=== PATIENT | female | born 1945 | race Caucasian/White ===

== ENCOUNTER → 2017-12-22 09:29 | Outpatient (CLI) | payer MEDICARE, OTHER, SELFPAY ==
[2017-12-22 11:59] LABS: Absolute Lymphocyte Count 1.63 X10^3/ul (0.83-4.51); Absolute Neutrophil Count 3.4 X10^3/uL (2.0-7.7); Basophil# 0.04 X10^3/uL; Basophil% 0.7 % (0-1); Eosinophil# 0.25 X10^3/uL; Eosinophils% 4.3 % (0-5); Hematocrit 40.3 % (37-47); Hemoglobin 13.7 g/dl (12.0-15.0); Lymphocyte # 1.63 X10^3/ul (4.0); Lymphocyte % 28.3 % (19-41); Mean Corpuscular Hgb 29.7 pg (27.0-32.0); Mean Corpuscular Volume 87.4 fL (81-99); Mean Platelet Vol. 12.1 fl (6.2-12.0); Monocyte# 0.47 X10^3/uL; Monocyte% 8.2 % (0-10); Neutrophil # 3.35 X10^3/uL (2.7-7.7); Neutrophil % 58.3 % (47-70); Platelet Count 210 K/mm3 (150-450); RBC Distribution Width CV 13.6 % (11.6-14.6); RBC Distribution Width SD 43.5 fl (35.1-43.9); Red Blood Count 4.61 M/mm3 (4.2-5.4); White Blood Count 5.8 K/mm3 (4.4-11.0)
[2017-12-22 12:00] LABS: POSITIVE COUNT NO; POSITIVE DIFFERENTIAL NO; POSITIVE MORPHOLOGY NO
[2017-12-22 12:06] LABS: ALB/GLOB Ratio 0.8 RATIO (0.9-2.4); AST(SGOT) 13 U/L (15-37); Alanine Aminotransfer ALT/SGPT 26 U/L (13-56); Albumin, Serum 3.6 g/dL (3.2-5.0); Alkaline Phosphatase 74 U/L (45-117); Anion Gap 10 (5-15); BUN 20 mg/dL (7-18); BUN/Creat Ratio 24.6 RATIO (10-20); Calcium,Total 8.8 mg/dL (8.5-10.1); Chloride 106 mmol/L (98-107); Cholesterol 179 mg/dL (200); Creatinine, Serum 0.81 mg/dL (0.55-1.02); EST Glomerular Filtration Rate 73 mL/min (>60); Est Glom Filt Rate - Afr Amer 89 mL/min (>60); Globulin 4.6 g/dL (2.2-4.2); Glucose 103 mg/dL (74-106); High Density Lipoprotein 41 mg/dL; Potassium 4.1 mmol/L (3.5-5.1); Protein, Total 8.2 g/dL (6.4-8.2); Sodium Level 141 mmol/L (136-145); Triglycerides 147 mg/dL; Very Low Density Lipoprotein 29 mg/dL (5-40)
== END ==
PROVIDERS: Family Provider Internal Medicine; PCP Internal Medicine; Visit Provider Internal Medicine
DX: I10 Essential (primary) hypertension (principal); E78.5 Hyperlipidemia, unspecified; Z87.898 Personal history of other specified conditions
CPT/HCPCS: 36415; 80053; 80061; 85025

== ENCOUNTER 2017-12-30 03:25 | Emergency (ER) | payer MEDICARE, OTHER, SELFPAY ==
[2017-12-30 03:29] VITALS: BP 168/116; PULSE 99; RESP 14; TEMP 36.6; O2SAT 100; BMI 28.5
--- NOTE | 2017-12-30 03:38 | EKG12_ITS ---
Test Reason : PALPS Blood Pressure : / mmHG Vent. Rate : 099 BPM Atrial Rate : 080 BPM P-R Int : 000 ms QRS Dur : 096 ms QT Int : 364 ms P-R-T Axes : 000 042 -14 degrees QTc Int : 467 ms Atrial fibrillation Nonspecific ST abnormality Abnormal ECG Confirmed by MEG CROUCH, TENZIN ([id number]), photograph editor STUART BAJWA ([id number]) on 01/01/2018 3:08:45 PM Referred By: JERRY Confirmed By:TENZIN WEAVER MD
--- NOTE | 2017-12-30 03:38 | RAD_ITS ---
STUDY: X-RAY CHEST REASON FOR EXAM: Female, 72 years old. Chest pain TECHNIQUE: One view COMPARISON: None. FINDINGS: The lungs are clear and expanded. There is no demonstrated pleural abnormality. Normal size heart. Normal mediastinum and leroy. Normal visualized pulmonary arteries. Normal visualized aortic arch and descending thoracic aorta. Normal visualized thoracic spine. Normal visualized ribs, clavicles, and shoulders. There is no demonstrated abnormality of the visualized soft tissue structures of the upper abdomen. RAD/Chest 1 View (Portable) IMPRESSION: Normal x-ray examination of the chest. No acute findings in the lungs Electronically Signed: Americo Khan MD at 4:01 EDT Tel , Service support ,
[2017-12-30 03:46] LABS: Absolute Lymphocyte Count 3.81 X10^3/ul (0.83-4.51); Absolute Neutrophil Count 3.8 X10^3/uL (2.0-7.7); Basophil# 0.04 X10^3/uL; Basophil% 0.4 % (0-1); Eosinophil# 0.54 X10^3/uL; Hematocrit 43.2 % (37-47); Hemoglobin 14.5 g/dl (12.0-15.0); Lymphocyte # 3.81 X10^3/ul (4.0); Lymphocyte % 42.4 % (19-41); Mean Corp Hgb Conc 33.6 g/gl (32-36); Mean Corpuscular Hgb 28.9 pg (27.0-32.0); Mean Corpuscular Volume 86.2 fL (81-99); Mean Platelet Vol. 11.4 fl (6.2-12.0); Monocyte# 0.83 X10^3/uL; Monocyte% 9.2 % (0-10); Neutrophil # 3.75 X10^3/uL (2.7-7.7); Neutrophil % 41.9 % (47-70); POSITIVE COUNT NO; POSITIVE DIFFERENTIAL NO; POSITIVE MORPHOLOGY NO; Platelet Count 265 K/mm3 (150-450); RBC Distribution Width CV 13.4 % (11.6-14.6); RBC Distribution Width SD 42.6 fl (35.1-43.9); Red Blood Count 5.01 M/mm3 (4.2-5.4)
--- NOTE | 2017-12-30 03:46 | ED.DCSUM_ITS ---
- ER Visit Summary Date of Service: 12/30/17 Chief Complaint: Palpitations History of Present Illness: The patient is a 72 F sudden palpitations awakening at 2 AM. States felt hot flash symptoms then nervous feeling in her chest.. No lightheaded symptoms. No chest pains. States that self-limiting symptoms in the past. No history of cardiac dysrhythmias. Patient states she takes 2 blood pressure medications. No stroke history. No history of heart failure. Takes baby aspirin at night. No report analyst. Physical Examination: General: Alert and oriented ?3, no acute distress HEENT: Normocephalic, atraumatic. Moist mucosa membranes Neck: supple, nontender. Cardiovascular: Regular rate and irregular rhythm, no murmurs Respiratory: Normal breath sounds, symmetric, no distress Abdomen: Soft, nontender, nondistended Extremities: Nontender, no edema, pulses intact ?4 Neuro: no focal neurological deficits. Test Results: EKG: Atrial fibrillation rate of 99, no ST or T wave changes. White count 9, hemoglobin 14.5. Potassium 4.5. Creatinine 0.89. Magnesium 2.2. TSH 2.67. Troponin negative. Chest x-ray negative. Emergency Department Course and Treatment: Patient rate controlled new onset atrial fibrillation on EKG. Check records and her medication she is on atenolol 50 mg daily. Blood pressure stable. Cardiac workup labs electrolytes are normal. Reevaluation heart rate remains rate controlled on the monitor from 70s-90s. Discussed with patient she is been having intermittent symptoms for years. However did be transient for seconds. I suspect she has been in and out of atrial fibrillation with her medication as a rate control. Chads 2 score is a 1. Recommendation currently would continue baby aspirin and her beta-vic. Patient given Dr. Hull for follow-up along with her PCP. Signs and symptoms discussed for return otherwise outpatient follow-up. Treatment Plan: [] Disposition: Discharge Impression: 1. New onset atrial fibrillation rate controlled This note was generated with [employer] dictation software. It may contain incorrect words, spelling, and punctuation that were not noted in review of the chart prior to signing ED Disposition - Plan for ED Patient: Disposition: Home or Assisted Living Chief Complaint: Palpitations Diagnosis: Atrial fibrillation with normal ventricular rate Instructions: ED Afib Referrals: Kristen Tinajero MD [Primary Care Provider] - 3-5 Days Kam Hull MD [STAFF PHYSICIAN] - 3-5 Days Additional Instructions: New onset atrial fibrillation on EKG. Continue your atenolol 50 mg daily. Continue baby aspirin. Follow-up as an outpatient.
[2017-12-30 04:09] LABS: Anion Gap 10 (5-15); BUN 21 mg/dL (7-18); BUN/Creat Ratio 23.7 RATIO (10-20); Chloride 106 mmol/L (98-107); Creatinine, Serum 0.89 mg/dL (0.55-1.02); EST Glomerular Filtration Rate 67 mL/min (>60); Est Glom Filt Rate - Afr Amer 81 mL/min (>60); Estimated Creatinine Clearance 41.04 ml/min; Glucose 124 mg/dL (74-106); Magnesium 2.2 mg/dL (1.6-2.6); Potassium 4.5 mmol/L (3.5-5.1); Sodium Level 140 mmol/L (136-145); Thyroid Stim Hormone (TSH) 2.63 uIU/mL (0.358-3.74)
[2017-12-30 04:12] VITALS: O2SAT 98
[2017-12-30] MEDS: Aspirin 81 MG TAB.CHEW 324 MG PO (04:12)
[2017-12-30 04:40] VITALS: BP 134/78; PULSE 92; RESP 18; O2SAT 97
== END 2017-12-30 04:56 | disposition home or self-care (01) ==
PROVIDERS: Emergency Provider Emergency Medicine; Family Provider Internal Medicine; PCP Internal Medicine
DX: I48.91 Unspecified atrial fibrillation (principal); I10 Essential (primary) hypertension; J30.2 Other seasonal allergic rhinitis; Z79.82 Long term (current) use of aspirin; Z79.899 Other long term (current) drug therapy
CPT/HCPCS: 71045; 80048; 83735; 84443; 84484; 85025; 93005; 99285; A4216

== ENCOUNTER → 2018-02-15 06:44 | Outpatient (CLI) | payer MEDICARE, OTHER, SELFPAY ==
--- NOTE | 2018-02-15 06:52 | ECHOCS_ITS ---
Reason For Study: Afib/Flutter Procedure This was a 2D Doppler, Color Flow transthoracic echocardiogram. The study was technically difficult. Contrast injection was performed. Exam performed in department. Left Ventricle Normal LV size. Left ventricular systolic function is normal. The estimated ejection fraction is 70 %. Transmitral diastolic flow velocities suggest moderate (stage 2) diastolic dysfunction (pseudonormal pattern). No regional wall motion abnormalities noted. Right Ventricle Normal RV size. Normal systolic function. Atria Normal left atrium. Normal right atrium. No doppler evidence for ASD. Mitral Valve There is no mitral annular calcification. Normal mitral valve. Trivial mitral valve insufficiency. Tricuspid Valve Normal tricuspid valve. Trivial tricuspid valve insufficiency. Unable to estimate RV systolic pressure/pulmonary artery pressure due to technically difficult study. Aortic Valve The aortic valve is not well visualized. Mild focal aortic valve calcification. Pulmonic Valve The pulmonic valve is not well visualized. Trivial pulmonic valve insufficiency. Great Vessels The aortic root is not well visualized. Pericardium/Pleural No pericardial effusion. Medication 22 gauge I.V. with prn adaptor inserted into right arm. Diluted definity 1ml given slow IV push to enhance endocardial definition. MMode/2D Measurements & Calculations LVIDd: 3.5 cm IVSd: 1.1 cm LAV(MOD-bp): 41.1 ml LVIDs: 1.8 cm LVPWd: 1.2 cm FS: 46.8 % LAV(MOD-bp) Indexed: 25.0 ml/m2 LAV(MOD-sp2): 35.7 ml LAV(MOD-sp4): 42.2 ml LA A4 area: 16.7 cm2 RA A4 area: 10.3 cm2 Time Measurements MV dec time: 0.19 sec Doppler Measurements & Calculations MV E max tate: 84.7 cm/sec Lat Peak E' Tate: 11.9 cm/sec MV V2 max: 104.0 cm/sec MV A max tate: 82.0 cm/sec E/E' lat: 7.1 MV max P.3 mmHg MV E/A: 1.0 MV V2 mean: 60.5 cm/sec MV mean P.8 mmHg MV V2 VTI: 24.6 cm MV P1/2t max tate: 104.0 cm/sec Ao V2 max: 141.6 cm/sec LV V1 max: 124.5 cm/sec MV P1/2t: 56.5 msec Ao max P.0 mmHg LV V1 max P.2 mmHg Ao V2 mean: 98.0 cm/sec LV V1 mean P.0 mmHg MV dec slope: 539.6 cm/sec2 Ao mean P.3 mmHg LV V1 mean: 80.3 cm/sec MVA(P1/2t): 3.9 cm2 Ao V2 VTI: 29.6 cm LV V1 VTI: 25.6 cm PA V2 max: 126.2 cm/sec Interpretation Summary The study was technically difficult. Contrast injection was performed. Left ventricular systolic function is normal. The estimated ejection fraction is 70 %. Trivial mitral valve insufficiency. Trivial tricuspid valve insufficiency. Mild focal aortic valve calcification. Trivial pulmonic valve insufficiency. Unable to estimate RV systolic pressure/pulmonary artery pressure due to technically difficult study. Transmitral diastolic flow velocities suggest diastolic dysfunction (pseudonormal pattern). Ordering Physician: Kam Hull Referring Physician: Kristen Tinajero Performed By: Tez Brandt RCS
--- NOTE | 2018-02-15 09:51 | STRESSREP ---
Stress Test Report Date: 02/15/2018 Procedure: Exercise tolerance test/imaging study Indications: Atrial fibrillation Consent: Per the patient Procedure: The patient exercised on a Alan protocol for 8 minutes completing Stage II and 2 minutes of Stage III achieving a peak heart rate of 153 bpm (103 % predicted maximal heart rate) with a peak blood pressure 184/70 mmHg and a peak MET capacity of 9 METs. The baseline ECG demonstrated normal sinus rhythm. The peak exercise ECG demonstrated no obvious ECG changes. There were occasional atrial couplets/triplets during recovery; occasional PVCs during exercise and recovery; occasional ventricular couplets during exercise. The functional capacity was considered good. There was no complaint of chest discomfort during exercise or recovery. The examination was discontinued secondary to dyspnea and leg discomfort. Impression: 1. Technically adequate (percent predicted maximal heart rate greater than 85%) exercise tolerance test 2. Peak exercise ECG with no obvious ECG changes 3. There were occasional atrial couplets/triplets during recovery; occasional PVCs during exercise and recovery; occasional ventricular couplets during exercise 4. Nuclear images pending Myocardial perfusion imaging study: Technique: The patient was injected with 11.3 mCi of technetium 99m Cardiolite and subsequently rest SPECT Cardiolite nuclear imaging was obtained in the horizontal long, vertical long, and short axis views. The patient exercised on a Alan protocol for 8 minutes completing Stage II and 2 minutes of Stage III achieving a peak heart rate of 153 bpm (103 % predicted maximal heart rate) with a peak blood pressure 184/70 mmHg and a peak MET capacity of 9 METs. The patient was injected with 33.3 mCi of technetium 99m Cardiolite and subsequently stress SPECT Cardiolite nuclear imaging was obtained in the horizontal long, vertical long, and short axis views. A gated Cardiolite study at peak stress was obtained. Interpretation: Rest and stress SPECT Cardiolite nuclear imaging status post realignment, normalization, and attenuation correction, demonstrates the appearance of relative uniform tracer uptake and myocardial perfusion appearing within normal limits. There is end systolic thickening and brightening. The gated Cardiolite study demonstrates myocardial thickening and inward wall motion. The reported LVEF is 91 %. Impression: 1. Rest and stress SPECT Cardiolite nuclear imaging demonstrate relative uniform tracer uptake and myocardial perfusion appearing within normal limits. 2. The gated Cardiolite study reports an LVEF of 91 %. This note was generated with [employer] software. It may contain incorrect words, spelling, and punctuation that were not noted in checking the note before signing.
--- NOTE | 2018-02-15 09:54 | STRESSREP_ITS ---
Stress Test Report Date: 02/15/2018 Procedure: Exercise tolerance test/imaging study Indications: Atrial fibrillation Consent: Per the patient Procedure: The patient exercised on a Alan protocol for 8 minutes completing Stage II and 2 minutes of Stage III achieving a peak heart rate of 153 bpm (103 % predicted maximal heart rate) with a peak blood pressure 184/70 mmHg and a peak MET capacity of 9 METs. The baseline ECG demonstrated normal sinus rhythm. The peak exercise ECG demonstrated no obvious ECG changes. There were occasional atrial couplets/triplets during recovery; occasional PVCs during exercise and recovery; occasional ventricular couplets during exercise. The functional capacity was considered good. There was no complaint of chest discomfort during exercise or recovery. The examination was discontinued secondary to dyspnea and leg discomfort. Impression: 1. Technically adequate (percent predicted maximal heart rate greater than 85%) exercise tolerance test 2. Peak exercise ECG with no obvious ECG changes 3. There were occasional atrial couplets/triplets during recovery; occasional PVCs during exercise and recovery; occasional ventricular couplets during exercise 4. Nuclear images pending Myocardial perfusion imaging study: Technique: The patient was injected with 11.3 mCi of technetium 99m Cardiolite and subsequently rest SPECT Cardiolite nuclear imaging was obtained in the horizontal long, vertical long, and short axis views. The patient exercised on a Alan protocol for 8 minutes completing Stage II and 2 minutes of Stage III achieving a peak heart rate of 153 bpm (103 % predicted maximal heart rate) with a peak blood pressure 184/70 mmHg and a peak MET capacity of 9 METs. The patient was injected with 33.3 mCi of technetium 99m Cardiolite and subsequently stress SPECT Cardiolite nuclear imaging was obtained in the horizontal long, vertical long, and short axis views. A gated Cardiolite study at peak stress was obtained. Interpretation: Rest and stress SPECT Cardiolite nuclear imaging status post realignment, normalization, and attenuation correction, demonstrates the appearance of re lative uniform tracer uptake and myocardial perfusion appearing within normal limits. There is end systolic thickening and brightening. The gated Cardiolite study demonstrates myocardial thickening and inward wall motion. The reported LVEF is 91 %. Impression: 1. Rest and stress SPECT Cardiolite nuclear imaging demonstrate relative uniform tracer uptake and myocardial perfusion appearing within normal limits. 2. The gated Cardiolite study reports an LVEF of 91 %. This note was generated with [employer] software. It may contain incorrect words, spelling, and punctuation that were not noted in checking the note before signing.
== END ==
PROVIDERS: Family Provider Internal Medicine; PCP Internal Medicine; Referring Provider Internal Medicine Cardiovascular Disease; Visit Provider Internal Medicine Cardiovascular Disease
DX: I48.0 Paroxysmal atrial fibrillation (principal); E78.5 Hyperlipidemia, unspecified; I10 Essential (primary) hypertension
CPT/HCPCS: 78452; 93017; 93306; A9500; Q9957; A4216; C8929

== ENCOUNTER → 2018-02-19 09:52 | Outpatient (CLI) | payer MEDICARE, OTHER, SELFPAY ==
[2018-01-25 10:18] VITALS: BMI 28.3
[2018-02-19 12:56] LABS: Anion Gap 8 (5-15); BUN 22 mg/dL (7-18); BUN/Creat Ratio 28.2 RATIO (10-20); Calcium,Total 8.8 mg/dL (8.5-10.1); Chloride 107 mmol/L (98-107); Creatinine, Serum 0.78 mg/dL (0.55-1.02); EST Glomerular Filtration Rate 77 mL/min (>60); Est Glom Filt Rate - Afr Amer 93 mL/min (>60); Glucose 96 mg/dL (74-106); Potassium 4.6 mmol/L (3.5-5.1); Sodium Level 140 mmol/L (136-145)
== END ==
PROVIDERS: Family Provider Internal Medicine; PCP Internal Medicine; Visit Provider Internal Medicine
DX: I10 Essential (primary) hypertension (principal)
CPT/HCPCS: 36415; 80048

== ENCOUNTER → 2018-06-04 09:33 | Outpatient (CLI) | payer MEDICARE, OTHER, SELFPAY ==
[2018-05-01 11:19] VITALS: BMI 28.5
[2018-06-04 12:56] LABS: Anion Gap 9 (5-15); BUN 24 mg/dL (7-18); BUN/Creat Ratio 28.7 RATIO (10-20); Calcium,Total 8.7 mg/dL (8.5-10.1); Chloride 110 mmol/L (98-107); Creatinine, Serum 0.84 mg/dL (0.55-1.02); EST Glomerular Filtration Rate 71 mL/min (>60); Est Glom Filt Rate - Afr Amer 86 mL/min (>60); Glucose 99 mg/dL (74-106); Potassium 4.3 mmol/L (3.5-5.1); Sodium Level 143 mmol/L (136-145)
== END ==
PROVIDERS: Family Provider Internal Medicine; PCP Internal Medicine; Referring Provider Internal Medicine; Visit Provider Internal Medicine
DX: I10 Essential (primary) hypertension (principal)
CPT/HCPCS: 36415; 80048

== ENCOUNTER → 2018-10-29 | Outpatient (CLI) | payer MEDICARE, OTHER, SELFPAY ==
[2018-10-29 09:49] VITALS: BMI 28.5
[2018-10-29 12:22] LABS: Absolute Lymphocyte Count 1.85 X10^3/uL (0.83-4.51); Absolute Neutrophil Count 2.9 X10^3/uL (2.0-7.7); Basophil# 0.05 X10^3/uL; Basophil% 0.9 % (0-1); Eosinophil# 0.36 X10^3/uL; Eosinophils% 6.3 % (0-5); Hematocrit 40.1 % (37-47); Hemoglobin 13.5 g/dL (12.0-15.0); Lymphocyte # 1.85 X10^3/ul (4.0); Lymphocyte % 32.4 % (19-41); Mean Corp Hgb Conc 33.7 g/dL (32-36); Mean Corpuscular Hgb 30.3 pg (27.0-32.0); Mean Corpuscular Volume 90.1 fL (81-99); Mean Platelet Vol. 11.9 fl (6.2-12.0); Monocyte# 0.51 X10^3/uL; Monocyte% 8.9 % (0-10); NRBC Flagged by Analyzer 0 % (0-5); Neutrophil # 2.93 X10^3/uL (2.7-7.7); Neutrophil % 51.3 % (47-70); Platelet Count 201 K/mm3 (150-450); RBC Distribution Width CV 12.9 % (11.6-14.6); RBC Distribution Width SD 42.4 fl (35.1-43.9); Red Blood Count 4.45 M/mm3 (4.2-5.4); White Blood Count 5.7 K/mm3 (4.4-11.0)
[2018-10-29 12:25] LABS: Anion Gap 5 (5-15); BUN 22 mg/dL (7-18); BUN/Creat Ratio 26.1 RATIO (10-20); Chloride 107 mmol/L (98-107); Creatinine, Serum 0.84 mg/dL (0.55-1.02); EST Glomerular Filtration Rate 70 mL/min (>60); Est Glom Filt Rate - Afr Amer 85 mL/min (>60); Glucose 105 mg/dL (74-106); Potassium 4.2 mmol/L (3.5-5.1); Sodium Level 137 mmol/L (136-145)
== END | disposition home or self-care (01) ==
LOC: BIMLAB 10:27
PROVIDERS: Family Provider Internal Medicine; PCP Internal Medicine; Visit Provider Internal Medicine
DX: I48.0 Paroxysmal atrial fibrillation (principal); I10 Essential (primary) hypertension
CPT/HCPCS: 36415; 80048; 85025

== ENCOUNTER → 2019-01-10 | Outpatient (CLI) | payer MEDICARE, OTHER, SELFPAY ==
[2018-12-18 09:46] VITALS: BMI 28.9
[2019-01-10 12:43] LABS: AST(SGOT) 16 U/L (15-37); Alanine Aminotransfer ALT/SGPT 29 U/L (13-56); Albumin, Serum 3.6 g/dL (3.2-5.0); Alkaline Phosphatase 66 U/L (45-117); Bilirubin, Direct 0.11 mg/dL (0.00-0.30); Cholesterol 192 mg/dL (200); Globulin 4.2 g/dL (2.2-4.2); High Density Lipoprotein 43 mg/dL; Protein, Total 7.8 g/dL (6.4-8.2); Triglycerides 206 mg/dL; Very Low Density Lipoprotein 41 mg/dL (5-40)
== END | disposition home or self-care (01) ==
LOC: BIMLAB 09:12
PROVIDERS: Family Provider Internal Medicine; PCP Internal Medicine; Visit Provider Nurse Practitioner Family
DX: E78.5 Hyperlipidemia, unspecified (principal)
CPT/HCPCS: 36415; 80061; 80076

== ENCOUNTER → 2019-06-17 10:27 | Outpatient (CLI) | payer MEDICARE, OTHER, SELFPAY ==
[2019-06-17 09:58] VITALS: BMI 28.9
[2019-06-17 13:18] LABS: Anion Gap 6 (5-15); BUN 17 mg/dL (7-18); BUN/Creat Ratio 18.8 RATIO (10-20); Calcium,Total 9.1 mg/dL (8.5-10.1); Chloride 110 mmol/L (98-107); EST Glomerular Filtration Rate 65 mL/min (>60); Est Glom Filt Rate - Afr Amer 79 mL/min (>60); Glucose 148 mg/dL (74-106); Sodium Level 142 mmol/L (136-145)
== END ==
PROVIDERS: PCP Internal Medicine; Referring Provider Internal Medicine; Visit Provider Internal Medicine
DX: I10 Essential (primary) hypertension (principal)
CPT/HCPCS: 36415; 80048

== ENCOUNTER → 2019-08-21 16:29 | Outpatient (CLI) | payer MEDICARE, OTHER, SELFPAY ==
[2019-08-21 13:51] VITALS: BMI 28.9
[2019-08-21 17:11] LABS: Absolute Lymphocyte Count 1.87 X10^3/uL (0.83-4.51); Absolute Neutrophil Count 3.6 X10^3/uL (2.0-7.7); Basophil# 0.05 X10^3/uL; Basophil% 0.8 % (0-1); Eosinophil# 0.27 X10^3/uL; Eosinophils% 4.3 % (0-5); Hematocrit 40.9 % (37-47); Hemoglobin 13.3 g/dL (12.0-15.0); Lymphocyte # 1.87 X10^3/ul (4.0); Lymphocyte % 29.5 % (19-41); Mean Corp Hgb Conc 32.5 g/dL (32-36); Mean Corpuscular Volume 89.3 fL (81-99); Mean Platelet Vol. 12.2 fl (6.2-12.0); Monocyte# 0.56 X10^3/uL; Monocyte% 8.8 % (0-10); NRBC Flagged by Analyzer 0 % (0-5); Neutrophil # 3.56 X10^3/uL (2.7-7.7); Neutrophil % 56.3 % (47-70); Platelet Count 238 K/mm3 (150-450); RBC Distribution Width CV 12.9 % (11.6-14.6); RBC Distribution Width SD 42.3 fl (35.1-43.9); Red Blood Count 4.58 M/mm3 (4.2-5.4); White Blood Count 6.3 K/mm3 (4.4-11.0)
[2019-08-21 17:22] LABS: ALB/GLOB Ratio 0.8 RATIO (0.9-2.4); AST(SGOT) 15 U/L (15-37); Alanine Aminotransfer ALT/SGPT 27 U/L (13-56); Albumin, Serum 3.9 g/dL (3.2-5.0); Alkaline Phosphatase 72 U/L (45-117); Anion Gap 6 (5-15); BUN 19 mg/dL (7-18); BUN/Creat Ratio 20.8 RATIO (10-20); Calcium,Total 9.4 mg/dL (8.5-10.1); Chloride 106 mmol/L (98-107); Creatinine, Serum 0.91 mg/dL (0.55-1.02); EST Glomerular Filtration Rate 64 mL/min (>60); Est Glom Filt Rate - Afr Amer 77 mL/min (>60); Globulin 4.8 g/dL (2.2-4.2); Glucose 87 mg/dL (74-106); Potassium 3.8 mmol/L (3.5-5.1); Protein, Total 8.7 g/dL (6.4-8.2); Sodium Level 139 mmol/L (136-145)
== END ==
PROVIDERS: PCP Internal Medicine; Referring Provider Internal Medicine; Visit Provider Internal Medicine
DX: I10 Essential (primary) hypertension (principal)
CPT/HCPCS: 80053; 85025

== ENCOUNTER → 2019-09-25 | Outpatient (CLI) | payer MEDICARE, OTHER, SELFPAY ==
[2019-08-21 13:51] VITALS: BMI 28.9
[2019-09-25 13:02] LABS: Anion Gap 5 (5-15); BUN 22 mg/dL (7-18); BUN/Creat Ratio 24.2 RATIO (10-20); Chloride 107 mmol/L (98-107); Creatinine, Serum 0.91 mg/dL (0.55-1.02); EST Glomerular Filtration Rate 64 mL/min (>60); Est Glom Filt Rate - Afr Amer 78 mL/min (>60); Glucose 109 mg/dL (74-106); Potassium 4.3 mmol/L (3.5-5.1); Sodium Level 139 mmol/L (136-145)
[2019-09-25 13:16] LABS: AST(SGOT) 16 U/L (15-37); Alanine Aminotransfer ALT/SGPT 27 U/L (13-56); Albumin, Serum 3.6 g/dL (3.2-5.0); Alkaline Phosphatase 59 U/L (45-117); Bilirubin, Direct 0.15 mg/dL (0.00-0.30); Cholesterol 170 mg/dL (200); Globulin 4.5 g/dL (2.2-4.2); High Density Lipoprotein 41 mg/dL; Protein, Total 8.1 g/dL (6.4-8.2); Triglycerides 123 mg/dL; Very Low Density Lipoprotein 25 mg/dL (5-40)
== END | disposition home or self-care (01) ==
LOC: BIMLAB 08:17
PROVIDERS: Nurse Practitioner Family; PCP Internal Medicine; Referring Provider Internal Medicine; Visit Provider Internal Medicine
DX: I10 Essential (primary) hypertension (principal); E78.00 Pure hypercholesterolemia, unspecified; E78.5 Hyperlipidemia, unspecified
CPT/HCPCS: 36415; 80048; 80061; 80076

== ENCOUNTER → 2019-12-04 11:19 | Outpatient (CLI) | payer MEDICARE, OTHER, SELFPAY ==
[2019-12-04 10:54] VITALS: BMI 28.9
[2019-12-04 11:22] LABS: Bacteria 0 SEEN /hpf (None Seen); Mucous, Urine 0 SEEN /hpf (<or=2+); Red Blood Cells-Urine 0 SEEN /hpf (0-5); White Blood Cells 0 SEEN /hpf (0-5)
[2019-12-04 12:23] LABS: Color, Urine Yellow (Yellow); Glucose, Dipstick Normal (Normal); Ketone-Dipstick Negative (Negative); Leukocyte Esterase-Dipstick 100 /ul (Negative); Nitrite-Dipstick Negative (Negative); Occult Blood-Urine Negative /ul (Negative); Protein-Dipstick Negative (Negative); Urine Bilirubin Dipstick Negative (Negative); Urine Clarity Clear (Clear); Urine Urobilinogen Normal (Normal)
[2019-12-04 12:27] LABS: Squamous Epithelial Cells - UA 0-5 SEEN /hpf (5-10)
== END ==
PROVIDERS: PCP Internal Medicine; Referring Provider Nurse Practitioner Family; Visit Provider Nurse Practitioner Family
DX: R35.0 Frequency of micturition (principal); N39.0 Urinary tract infection, site not specified
CPT/HCPCS: 81001; 87086; 87088

== ENCOUNTER → 2020-02-11 11:00 | Outpatient (CLI) | payer MEDICARE, OTHER, SELFPAY ==
[2020-01-13 09:53] VITALS: BMI 28.9
== END ==
PROVIDERS: PCP Internal Medicine; Referring Provider Physician Assistant Medical; Visit Provider Physician Assistant Medical
DX: I48.91 Unspecified atrial fibrillation (principal); I48.0 Paroxysmal atrial fibrillation; R00.0 Tachycardia, unspecified
CPT/HCPCS: 93225; 93226

== ENCOUNTER → 2020-04-14 08:52 | Outpatient (CLI) | payer MEDICARE, OTHER, SELFPAY ==
[2020-04-13 08:56] VITALS: BMI 29.2
[2020-04-14 12:23] LABS: Absolute Lymphocyte Count 2.14 X10^3/uL (0.83-4.51); Absolute Neutrophil Count 2.6 X10^3/uL (2.0-7.7); Basophil# 0.07 X10^3/uL; Basophil% 1.2 % (0-1); Eosinophil# 0.34 X10^3/uL; Hematocrit 39.3 % (37-47); Hemoglobin 12.9 g/dL (12.0-15.0); Lymphocyte # 2.14 X10^3/ul (4.0); Lymphocyte % 37.8 % (19-41); Mean Corp Hgb Conc 32.8 g/dL (32-36); Mean Corpuscular Hgb 29.7 pg (27.0-32.0); Mean Corpuscular Volume 90.6 fL (81-99); Mean Platelet Vol. 12.2 fl (6.2-12.0); Monocyte% 8.8 % (0-10); NRBC Flagged by Analyzer 0 % (0-5); Neutrophil # 2.59 X10^3/uL (2.7-7.7); Neutrophil % 45.8 % (47-70); Platelet Count 216 K/mm3 (150-450); RBC Distribution Width CV 12.7 % (11.6-14.6); RBC Distribution Width SD 42.6 fl (35.1-43.9); Red Blood Count 4.34 M/mm3 (4.2-5.4); White Blood Count 5.7 K/mm3 (4.4-11.0)
[2020-04-14 12:39] LABS: Cholesterol 182 mg/dL (200); High Density Lipoprotein 43 mg/dL; Triglycerides 138 mg/dL; Very Low Density Lipoprotein 28 mg/dL (5-40)
[2020-04-14 13:08] LABS: ALB/GLOB Ratio 0.9 RATIO (0.9-2.4); AST(SGOT) 9 U/L (15-37); Alanine Aminotransfer ALT/SGPT 21 U/L (13-56); Albumin, Serum 3.6 g/dL (3.2-5.0); Alkaline Phosphatase 67 U/L (45-117); Anion Gap 7 (5-15); BUN 24 mg/dL (7-18); BUN/Creat Ratio 25.8 RATIO (10-20); Bilirubin, Direct 0.13 mg/dL (0.00-0.30); Calcium,Total 8.5 mg/dL (8.5-10.1); Chloride 107 mmol/L (98-107); Creatinine, Serum 0.93 mg/dL (0.55-1.02); EST Glomerular Filtration Rate 63 mL/min (>60); Est Glom Filt Rate - Afr Amer 76 mL/min (>60); Globulin 3.8 g/dL (2.2-4.2); Glucose 101 mg/dL (74-106); Potassium 4.5 mmol/L (3.5-5.1); Protein, Total 7.4 g/dL (6.4-8.2); Sodium Level 139 mmol/L (136-145); T4 Free Direct 0.98 ng/dL (0.76-1.46); Thyroid Stim Hormone (TSH) 1.65 uIU/mL (0.358-3.74)
== END ==
PROVIDERS: Nurse Practitioner Family; PCP Internal Medicine; Referring Provider Internal Medicine; Visit Provider Internal Medicine
DX: F41.8 Other specified anxiety disorders (principal); I10 Essential (primary) hypertension; E78.00 Pure hypercholesterolemia, unspecified; E78.5 Hyperlipidemia, unspecified
CPT/HCPCS: 36415; 80053; 80061; 82248; 84439; 84443; 85025

== ENCOUNTER → 2020-10-22 08:20 | Outpatient (CLI) | payer MEDICARE, OTHER, SELFPAY ==
[2020-07-27 09:41] VITALS: BMI 29.9
[2020-10-22 12:50] LABS: Anion Gap 5 (5-15); BUN 23 mg/dL (7-18); BUN/Creat Ratio 25.7 RATIO (10-20); Calcium,Total 8.7 mg/dL (8.5-10.1); Chloride 108 mmol/L (98-107); EST Glomerular Filtration Rate 65 mL/min (>60); Est Glom Filt Rate - Afr Amer 79 mL/min (>60); Glucose 108 mg/dL (74-106); Potassium 4.2 mmol/L (3.5-5.1); Sodium Level 141 mmol/L (136-145)
[2020-10-22 12:54] LABS: AST(SGOT) 14 U/L (15-37); Alanine Aminotransfer ALT/SGPT 23 U/L (13-56); Albumin, Serum 3.4 g/dL (3.2-5.0); Alkaline Phosphatase 61 U/L (45-117); Cholesterol 177 mg/dL (200); Globulin 4.3 g/dL (2.2-4.2); High Density Lipoprotein 43 mg/dL; Protein, Total 7.7 g/dL (6.4-8.2); Triglycerides 135 mg/dL; Very Low Density Lipoprotein 27 mg/dL (5-40)
== END ==
PROVIDERS: Nurse Practitioner Family; PCP Internal Medicine; Referring Provider Internal Medicine; Visit Provider Internal Medicine
DX: Z00.00 Encounter for general adult medical examination without abnormal findings (principal); E78.00 Pure hypercholesterolemia, unspecified; E78.5 Hyperlipidemia, unspecified
CPT/HCPCS: 36415; 80048; 80061; 80076

== ENCOUNTER → 2021-09-02 | Outpatient (CLI) | payer MEDICARE, OTHER, SELFPAY ==
[2021-09-02 12:24] LABS: Absolute Lymphocyte Count 2.13 X10^3/uL (0.83-4.51); Absolute Neutrophil Count 2.7 X10^3/uL (2.0-7.7); Basophil# 0.04 X10^3/uL; Basophil% 0.7 % (0-1); Eosinophil# 0.41 X10^3/uL; Eosinophils% 6.9 % (0-5); Hemoglobin 12.2 g/dL (12.0-15.0); Lymphocyte # 2.13 X10^3/ul (0.83-4.51); Lymphocyte % 35.9 % (19-41); Mean Corpuscular Hgb 29.5 pg (27.0-32.0); Mean Corpuscular Volume 89.6 fL (81-99); Mean Platelet Vol. 12.2 fl (6.2-12.0); Monocyte% 10.1 % (0-10); NRBC Flagged by Analyzer 0 % (0-5); Neutrophil # 2.74 X10^3/uL (2.7-7.7); Neutrophil % 46.1 % (47-70); Platelet Count 188 K/mm3 (150-450); RBC Distribution Width CV 13.3 % (11.6-14.6); RBC Distribution Width SD 44.1 fl (35.1-43.9); Red Blood Count 4.13 M/mm3 (4.2-5.4); White Blood Count 5.9 K/mm3 (4.4-11.0)
[2021-09-02 12:51] LABS: ALB/GLOB Ratio 0.8 RATIO (0.9-2.4); AST(SGOT) 13 U/L (15-37); Alanine Aminotransfer ALT/SGPT 21 U/L (13-56); Albumin, Serum 3.3 g/dL (3.2-5.0); Alkaline Phosphatase 58 U/L (45-117); Anion Gap 5 (5-15); BUN 23 mg/dL (7-18); BUN/Creat Ratio 24.1 RATIO (10-20); Calcium,Total 8.7 mg/dL (8.5-10.1); Chloride 108 mmol/L (98-107); Cholesterol 183 mg/dL (200); Creatinine, Serum 0.95 mg/dL (0.55-1.02); EST Glomerular Filtration Rate 61 mL/min (>60); Est Glom Filt Rate - Afr Amer 73 mL/min (>60); Globulin 4.1 g/dL (2.2-4.2); Glucose 118 mg/dL (74-106); High Density Lipoprotein 40 mg/dL; Potassium 4.3 mmol/L (3.5-5.1); Protein, Total 7.4 g/dL (6.4-8.2); Sodium Level 138 mmol/L (136-145); Triglycerides 160 mg/dL; Very Low Density Lipoprotein 32 mg/dL (5-40)
== END | disposition home or self-care (01) ==
LOC: BIMLAB 08:12
PROVIDERS: PCP Internal Medicine; Referring Provider Internal Medicine; Visit Provider Internal Medicine
DX: I10 Essential (primary) hypertension (principal); E78.5 Hyperlipidemia, unspecified
CPT/HCPCS: 36415; 80053; 80061; 85025

== ENCOUNTER → 2022-03-23 | Outpatient (CLI) | payer MEDICARE, OTHER, SELFPAY ==
--- NOTE | 2022-03-23 10:48 | BD_ITS ---
STUDY: DUAL ENERGY X-RAY ABSORPTIOMETRY / DXA REASON FOR EXAM: Female, 76 years old. Hx of Osteopenia TECHNIQUE: Bone Mineral Density (BMD) measurements of lumbar spine and bilateral hips were obtained. COMPARISON: None. FINDINGS: Lumbar Spine (L1-L4): g/cm2 (0.946) / T-score (-0.9) / Z-score (1.6) Findings are suggestive of normal bone density with a low fracture risk. Left Femur Total: g/cm2 (0.797) / T-score (-1.2) / Z-score (0.7) Left Femoral Neck: g/cm2 (0.597) / T-score (-2.3) / Z-score (-0.1) Right Femur Total: g/cm2 (0.743) / T-score (-1.6) / Z-score (0.2) Right Femoral Neck: g/cm2 (0.524) / T-score (-2.9) / Z-score (-0.8) BD/Dexa Bone Density Study IMPRESSION: The patient is considered osteoporotic as outlined below according to World [place] Organization (WHO) criteria with a high fracture risk. Reference Information: The T-score is the number of standard deviations above or below the standard which is normal for young adults at their peak bone mineral density. The World Health Organization (WHO) interprets the T-scores as follows: Above -1 Normal bone density Between -1 and -2.5 Osteopenia Equal to / or below -2.5 Osteoporosis As a practical clinical guideline, osteopenia may be graded as follows: Mild -1 through -1.5 Moderate -1.6 through -2.0 Severe -2.1 through -2.4 The Z-score is the number of standard deviations above or below age-matched controls. A Z-score of less than -1.5 would be considered abnormal. References: 1. NIH Osteoporosis and Related Bone Diseases www osteo.org 2. International Society for Clinical Densitometry www iscd.org 3. National Osteoporosis Foundation www nof.org Electronically Signed: Antwan Randall MD at 14:47 EST ,
== END | disposition home or self-care (01) ==
LOC: OPBD 10:39
PROVIDERS: PCP Internal Medicine; Visit Provider Internal Medicine
DX: Z78.0 Asymptomatic menopausal state (principal)
CPT/HCPCS: 77080

== ENCOUNTER → 2022-07-21 | Outpatient (CLI) | payer MEDICARE, OTHER, SELFPAY ==
[2022-07-21 12:09] LABS: Absolute Lymphocyte Count 2.66 X10^3/uL (0.83-4.51); Absolute Neutrophil Count 3.1 X10^3/uL (2.0-7.7); Basophil# 0.07 X10^3/uL; Eosinophil# 0.46 X10^3/uL; Eosinophils% 6.6 % (0-5); Hematocrit 43.7 % (37-47); Lymphocyte # 2.66 X10^3/ul (0.83-4.51); Mean Corpuscular Volume 90.7 fL (81-99); Monocyte# 0.71 X10^3/uL; Monocyte% 10.1 % (0-10); NRBC Flagged by Analyzer 0 % (0-5); Neutrophil # 3.08 X10^3/uL (2.7-7.7); Platelet Count 235 K/mm3 (150-450); RBC Distribution Width CV 13.7 % (11.6-14.6); RBC Distribution Width SD 45.2 fl (35.1-43.9); Red Blood Count 4.82 M/mm3 (4.2-5.4)
[2022-07-21 12:23] LABS: Vitamin D,25 Hydroxy 60.6 ng/mL
[2022-07-21 12:25] LABS: ALB/GLOB Ratio 0.8 RATIO (0.9-2.4); AST(SGOT) 17 U/L (15-37); Alanine Aminotransfer ALT/SGPT 27 U/L (13-56); Albumin, Serum 3.5 g/dL (3.2-5.0); Alkaline Phosphatase 64 U/L (45-117); Anion Gap -1 (5-15); BUN 27 mg/dL (7-18); BUN/Creat Ratio 28.2 RATIO (10-20); Calcium,Total 8.9 mg/dL (8.5-10.1); Chloride 109 mmol/L (98-107); Cholesterol 197 mg/dL (200); Creatinine, Serum 0.96 mg/dL (0.55-1.02); EST Glomerular Filtration Rate 60 mL/min (>60); Est Glom Filt Rate - Afr Amer 73 mL/min (>60); Globulin 4.4 g/dL (2.2-4.2); Glucose 151 mg/dL (74-106); High Density Lipoprotein 43 mg/dL; Potassium 4.5 mmol/L (3.5-5.1); Protein, Total 7.9 g/dL (6.4-8.2); Sodium Level 134 mmol/L (136-145); Triglycerides 164 mg/dL; Very Low Density Lipoprotein 33 mg/dL (5-40)
== END | disposition home or self-care (01) ==
LOC: BIMLAB 08:51
PROVIDERS: PCP Internal Medicine; Referring Provider Internal Medicine; Visit Provider Internal Medicine
DX: I10 Essential (primary) hypertension (principal); M85.80 Other specified disorders of bone density and structure, unspecified site
CPT/HCPCS: 36415; 80053; 80061; 82306; 85025

== ENCOUNTER → 2022-12-08 | Outpatient (CLI) | payer MEDICARE, OTHER, SELFPAY ==
[2022-12-08 13:01] LABS: Anion Gap 5 (5-15); BUN 20 mg/dL (7-18); BUN/Creat Ratio 21.5 RATIO (10-20); Chloride 108 mmol/L (98-107); Creatinine, Serum 0.93 mg/dL (0.55-1.02); EST Glomerular Filtration Rate 62 mL/min (>60); Est Glom Filt Rate - Afr Amer 75 mL/min (>60); Glucose 112 mg/dL (74-106); Potassium 4.2 mmol/L (3.5-5.1); Sodium Level 137 mmol/L (136-145)
== END | disposition home or self-care (01) ==
LOC: BIMLAB 08:25
PROVIDERS: PCP Internal Medicine; Visit Provider Internal Medicine
DX: I10 Essential (primary) hypertension (principal)
CPT/HCPCS: 36415; 80048

== ENCOUNTER → 2023-06-19 | Outpatient (CLI) | payer MEDICARE, OTHER, SELFPAY ==
[2023-06-19 12:07] LABS: Absolute Lymphocyte Count 1.97 X10^3/uL (0.83-4.51); Absolute Neutrophil Count 3.8 X10^3/uL (2.0-7.7); Basophil# 0.06 X10^3/uL; Basophil% 0.9 % (0-1); Eosinophil# 0.36 X10^3/uL; Eosinophils% 5.3 % (0-5); Hemoglobin 12.8 g/dL (12.0-15.0); Lymphocyte # 1.97 X10^3/ul (0.83-4.51); Lymphocyte % 28.9 % (19-41); Mean Corp Hgb Conc 31.2 g/dL (32-36); Mean Corpuscular Hgb 28.3 pg (27.0-32.0); Mean Corpuscular Volume 90.5 fL (81-99); Mean Platelet Vol. 12.3 fl (6.2-12.0); Monocyte% 8.8 % (0-10); NRBC Flagged by Analyzer 0 % (0-5); Neutrophil % 55.8 % (47-70); Platelet Count 210 K/mm3 (150-450); RBC Distribution Width CV 13.8 % (11.6-14.6); RBC Distribution Width SD 45.8 fl (35.1-43.9); Red Blood Count 4.53 M/mm3 (4.2-5.4); White Blood Count 6.8 K/mm3 (4.4-11.0)
[2023-06-19 12:52] LABS: Vitamin D,25 Hydroxy 47.7 ng/mL
[2023-06-19 13:22] LABS: ALB/GLOB Ratio 0.8 RATIO (0.9-2.4); AST(SGOT) 17 U/L (15-37); Alanine Aminotransfer ALT/SGPT 23 U/L (13-56); Albumin, Serum 3.4 g/dL (3.2-5.0); Alkaline Phosphatase 57 U/L (45-117); Anion Gap 4 (5-15); BUN 21 mg/dL (7-18); BUN/Creat Ratio 21.9 RATIO (10-20); Calcium,Total 9.3 mg/dL (8.5-10.1); Chloride 110 mmol/L (98-107); Cholesterol 205 mg/dL (200); Creatinine, Serum 0.96 mg/dL (0.55-1.02); EST Glomerular Filtration Rate 60 mL/min (>60); Est Glom Filt Rate - Afr Amer 72 mL/min (>60); Globulin 4.3 g/dL (2.2-4.2); Glucose 117 mg/dL (74-106); High Density Lipoprotein 45 mg/dL; Potassium 4.6 mmol/L (3.5-5.1); Protein, Total 7.7 g/dL (6.4-8.2); Sodium Level 140 mmol/L (136-145); Triglycerides 144 mg/dL; Very Low Density Lipoprotein 29 mg/dL (5-40)
== END | disposition home or self-care (01) ==
LOC: BIMLAB 09:55
PROVIDERS: PCP Internal Medicine; Visit Provider Internal Medicine
DX: M81.0 Age-related osteoporosis without current pathological fracture (principal); I10 Essential (primary) hypertension
CPT/HCPCS: 36415; 80053; 80061; 82306; 85025

== ENCOUNTER → 2023-10-18 | Outpatient (CLI) | payer MEDICARE, OTHER, SELFPAY ==
[2023-10-18 17:22] LABS: Anion Gap 5 (5-15); BUN 21 mg/dL (7-18); BUN/Creat Ratio 24.1 RATIO (10-20); Calcium,Total 8.7 mg/dL (8.5-10.1); Chloride 108 mmol/L (98-107); Creatinine, Serum 0.87 mg/dL (0.55-1.02); EST Glomerular Filtration Rate 67 mL/min (>60); Est Glom Filt Rate - Afr Amer 81 mL/min (>60); Glucose 138 mg/dL (74-106); Potassium 4.6 mmol/L (3.5-5.1); Sodium Level 141 mmol/L (136-145)
== END | disposition home or self-care (01) ==
LOC: BIMLAB 10:22
PROVIDERS: PCP Internal Medicine; Referring Provider Internal Medicine; Visit Provider Internal Medicine
DX: I10 Essential (primary) hypertension (principal)
CPT/HCPCS: 36415; 80048

== ENCOUNTER → 2024-02-19 | Outpatient (CLI) | payer MEDICARE, OTHER, SELFPAY ==
[2024-02-19 12:43] LABS: Anion Gap 6 (5-15); BUN 17 mg/dL (7-18); BUN/Creat Ratio 17.8 RATIO (10-20); Calcium,Total 8.8 mg/dL (8.5-10.1); Chloride 110 mmol/L (98-107); Creatinine, Serum 0.95 mg/dL (0.55-1.02); EST Glomerular Filtration Rate 60 mL/min (>60); Est Glom Filt Rate - Afr Amer 73 mL/min (>60); Glucose 140 mg/dL (74-106); Potassium 3.9 mmol/L (3.5-5.1); Sodium Level 141 mmol/L (136-145)
[2024-02-19 12:47] LABS: Absolute Lymphocyte Count 1.48 X10^3/uL (0.83-4.51); Absolute Neutrophil Count 3.6 X10^3/uL (2.0-7.7); Basophil# 0.04 X10^3/uL; Basophil% 0.7 % (0-1); Eosinophil# 0.28 X10^3/uL; Eosinophils% 4.8 % (0-5); Hematocrit 36.5 % (37-47); Hemoglobin 11.7 g/dL (12.0-15.0); Lymphocyte # 1.48 X10^3/ul (0.83-4.51); Lymphocyte % 25.5 % (19-41); Mean Corp Hgb Conc 32.1 g/dL (32-36); Mean Corpuscular Hgb 28.8 pg (27.0-32.0); Mean Corpuscular Volume 89.9 fL (81-99); Mean Platelet Vol. 11.7 fl (6.2-12.0); Monocyte# 0.43 X10^3/uL; Monocyte% 7.4 % (0-10); NRBC Flagged by Analyzer 0 % (0-5); Neutrophil # 3.57 X10^3/uL (2.7-7.7); Neutrophil % 61.4 % (47-70); Platelet Count 194 K/mm3 (150-450); RBC Distribution Width CV 13.4 % (11.6-14.6); RBC Distribution Width SD 44.4 fl (35.1-43.9); Red Blood Count 4.06 M/mm3 (4.2-5.4); White Blood Count 5.8 K/mm3 (4.4-11.0)
== END | disposition home or self-care (01) ==
LOC: BIMLAB 09:56
PROVIDERS: PCP Internal Medicine; Visit Provider Internal Medicine
DX: I10 Essential (primary) hypertension (principal)
CPT/HCPCS: 36415; 80048; 85025

== ENCOUNTER → 2024-06-04 | Outpatient (CLI) | payer MEDICARE, OTHER, SELFPAY ==
--- NOTE | 2024-06-04 09:18 | BD_ITS ---
PROCEDURE: DEXA BONE DENSITY STUDY REASON FOR EXAM: F, age 78 y/o . Postmenopausal. TECHNIQUE: DEXA scan of the lumbar spine and both hips. COMPARISON: Comparison is made with prior study dated March 26, 2022. FINDINGS: Lumbar Spine (L1-L4): g/cm2 (0.972)/T-score (-0.4)/Z-score (2.1) findings are suggestive of normal with a low fracture risk. Left Femur Total: g/cm2 (0.806)/T-score (-1.1)/Z-score (0.9) Left Femoral Neck: g/cm2 (0.53 cm)/T-score (-2.8)/Z-score (-0.6) Right Femur Total: g/cm2 (0.735)/T-score (-1.7)/Z-score (0.3) Right Femoral Neck: g/cm2 (0.519)/T-score (-3.0)/Z-score (-0.7) The T-Scores on the most recent prior examination were: Lumbar Spine (L1-L4): There has been worsening of bone density since the previous examination. Left Femur Total: Improvement of 1.1%. Right Femur Total: Worsening of 1.1%. BD/Dexa Bone Density Study IMPRESSION: The patient is considered osteoporosis as outlined below according to World [place] Organization (WHO) criteria with a high fracture risk. There has been worsening of bone density since the previous exa mination. Reading Location: [facility]
--- NOTE | 2024-06-04 10:00 | BI_ITS ---
PROCEDURE: SCRN MAMM (CAD)W/DOM BILAT REASON FOR EXAM: F, Age 78 y/o, presents for annual screening mammogram. Family history of breast cancer in her mother at age 76. TECHNIQUE: Bilateral screening digital breast tomosynthesis with 2D and 3D images. Computer aided detection. COMPARISON: No priors available FINDINGS: There are scattered areas of fibroglandular density. No suspicious masses, areas of developing architectural distortion, or suspicious calcifications. BI/SCRN MAMM (CAD)W/DOM BILAT IMPRESSION: There is no mammographic evidence of malignancy. BI-RADS 1: NEGATIVE. RECOMMEND ANNUAL MAMMOGRAPHIC SCREENING. Follow-up code: Routine Follow-up The patient will be notified of the results by letter. Reading Location: [id number]
== END | disposition home or self-care (01) ==
LOC: OPBD 09:15
PROVIDERS: PCP Internal Medicine; Referring Provider Internal Medicine; Visit Provider Internal Medicine
DX: Z12.31 Encounter for screening mammogram for malignant neoplasm of breast (principal); M81.0 Age-related osteoporosis without current pathological fracture
CPT/HCPCS: 77063; 77067; 77080

== ENCOUNTER → 2024-06-17 | Outpatient (CLI) | payer MEDICARE, OTHER, SELFPAY ==
[2024-06-17 12:48] LABS: Absolute Neutrophil Count 3.2 X10^3/uL (2.0-7.7); Basophil# 0.05 X10^3/uL; Basophil% 0.9 % (0-1); Eosinophil# 0.43 X10^3/uL; Eosinophils% 7.3 % (0-5); Hematocrit 37.1 % (37-47); Hemoglobin 12.1 g/dL (12.0-15.0); Mean Corp Hgb Conc 32.6 g/dL (32-36); Mean Corpuscular Hgb 29.1 pg (27.0-32.0); Mean Corpuscular Volume 89.2 fL (81-99); Mean Platelet Vol. 11.8 fl (6.2-12.0); Monocyte# 0.45 X10^3/uL; Monocyte% 7.7 % (0-10); NRBC Flagged by Analyzer 0 % (0-5); Neutrophil # 3.22 X10^3/uL (2.7-7.7); Neutrophil % 54.9 % (47-70); Platelet Count 202 K/mm3 (150-450); RBC Distribution Width CV 14.2 % (11.6-14.6); RBC Distribution Width SD 45.8 fl (35.1-43.9); Red Blood Count 4.16 M/mm3 (4.2-5.4); White Blood Count 5.9 K/mm3 (4.4-11.0)
[2024-06-17 14:36] LABS: ALB/GLOB Ratio 1.1 RATIO (0.9-2.4); AST(SGOT) 16 U/L (<=31); Alanine Aminotransfer ALT/SGPT 14 U/L (<=34); Albumin, Serum 3.9 g/dL (3.4-4.8); Alkaline Phosphatase 62 U/L (35-104); Anion Gap 10 (5-15); BUN 18 mg/dL (4-19); BUN/Creat Ratio 19.1 RATIO (10-20); Carbon Dioxide 21.6 mmol/L (21.0-32.0); Chloride 108 mmol/L (98-108); Cholesterol 183 mg/dL (<=200); Creatinine, Serum 0.94 mg/dL (0.70-1.20); EST Glomerular Filtration Rate 62 (>60); Globulin 3.5 g/dL (2.2-4.2); Glucose 149 mg/dL (70-99); High Density Lipoprotein 40 mg/dL; Low Density Lipoprotein Calc. 102 mg/dL; Potassium 4.1 mmol/L (3.3-5.1); Protein, Total 7.4 g/dL (5.9-8.4); Sodium Level 140 mmol/L (133-145); Total Bilirubin 0.51 mg/dL (0.00-1.30); Triglycerides 202 mg/dL; Very Low Density Lipoprotein 40 mg/dL (5-40); Vitamin D,25 Hydroxy 53.1 ng/mL (30-100); cholesterol:hdl ratio screen 4.54
[2024-06-18 10:11] LABS: Hemoglobin A1c 7.1 % (<=5.6)
== END | disposition home or self-care (01) ==
LOC: BIMLAB 10:02
PROVIDERS: PCP Internal Medicine; Referring Provider Internal Medicine; Visit Provider Internal Medicine
DX: I10 Essential (primary) hypertension (principal); I48.0 Paroxysmal atrial fibrillation; R73.9 Hyperglycemia, unspecified; M81.0 Age-related osteoporosis without current pathological fracture
CPT/HCPCS: 36415; 80053; 80061; 82306; 83036; 85025

== ENCOUNTER → 2025-01-16 | Outpatient (CLI) | payer MEDICARE, OTHER, SELFPAY ==
[2025-01-16 15:45] LABS: AST(SGOT) 15 U/L (<=31); Alanine Aminotransfer ALT/SGPT 16 U/L (<=34); Albumin, Serum 4.0 g/dL (3.4-4.8); Alkaline Phosphatase 58 U/L (35-104); Anion Gap 11 (5-15); BUN 29 mg/dL (4-19); BUN/Creat Ratio 31.4 RATIO (10-20); Calcium,Total 9.5 mg/dL (7.6-11.0); Carbon Dioxide 22.9 mmol/L (21.0-32.0); Chloride 105 mmol/L (98-108); Cholesterol 178 mg/dL (<=200); Globulin 3.5 g/dL (2.2-4.2); Glucose 127 mg/dL (70-99); Low Density Lipoprotein Calc. 103 mg/dL; Potassium 4.4 mmol/L (3.3-5.1); Triglycerides 144 mg/dL; Very Low Density Lipoprotein 29 mg/dL (5-40); cholesterol:hdl ratio screen 3.85
== END | disposition home or self-care (01) ==
LOC: MTLAB 10:46
PROVIDERS: PCP Internal Medicine; Referring Provider Internal Medicine; Visit Provider Internal Medicine
DX: I10 Essential (primary) hypertension (principal); E78.5 Hyperlipidemia, unspecified
CPT/HCPCS: 36415; 80053; 80061

== ENCOUNTER → 2025-01-31 | Outpatient (CLI) | payer MEDICARE, OTHER, SELFPAY ==
[2025-01-31 12:24] LABS: Hematocrit 38.3 % (37-47); Hemoglobin 12.6 g/dL (12.0-15.0); Immature Granulocytes Count 0.030 X10^3/uL (0.0-0.0); Mean Corp Hgb Conc 32.9 g/dL (32-36); Mean Corpuscular Volume 87.6 fL (81-99); Mean Platelet Vol. 12.0 fl (6.2-12.0); NRBC Flagged by Analyzer 0 % (0-5); Platelet Count 198 K/mm3 (150-450); RBC Distribution Width CV 13.3 % (11.6-14.6); RBC Distribution Width SD 42.8 fl (35.1-43.9); Red Blood Count 4.37 M/mm3 (4.2-5.4); White Blood Count 7.9 K/mm3 (4.4-11.0)
== END | disposition home or self-care (01) ==
LOC: MTLAB 10:59
PROVIDERS: PCP Internal Medicine; Referring Provider Internal Medicine; Visit Provider Internal Medicine
DX: I10 Essential (primary) hypertension (principal); R73.09 Other abnormal glucose
CPT/HCPCS: 36415; 83036; 85025